=== PATIENT | female | born 1970 | race Caucasian/White ===

== ENCOUNTER 2022-12-02 08:41 | Outpatient (CLI) | payer BC, SELFPAY ==
--- NOTE | 2022-12-02 08:45 | CRLHL7_ITS ---
For Patients: As a result of the Century Cures Act, medical imaging exams and procedure reports are released immediately into your electronic medical record. You may view this report before your referring provider. If you have questions, please contact your health care provider. BILATERAL SCREENING MAMMOGRAM WITH COMPUTER-AIDED DETECTION AND TOMOSYNTHESIS TECHNIQUE: CC and MLO views were obtained. These mammographic images have been obtained using full-field digital technique. These mammographic images were interpreted with the benefit of computer-aided detection. Breast Tomosynthesis was used in this interpretation. COMPARISON FILM: 02/21/21, 10/20/19, 05/05/18. FINDINGS: There are scattered areas of fibroglandular density IMPRESSION: There is no radiographic evidence for malignancy. ASSESSMENT: BI-RADS Category 1: Negative RECOMMENDATION: Routine screening mammogram in 1 year. A lay language report of this examination will be provided to the patient. Landon Wilson M.D. Diagnostic/Nuclear Medicine Radiologist [email or web address] DINO/Dictated by: Landon Wilson MD @ 12/03/2022 10:29:00 AM (Electronically Signed)
== END 2022-12-02 08:42 | disposition home or self-care (01) ==
LOC: MAMMO 08:42
PROVIDERS: PCP Physician Assistant Medical; Visit Provider Physician Assistant Medical
DX: Z12.31 Encounter for screening mammogram for malignant neoplasm of breast (principal)
CPT/HCPCS: 77063; 77067

== ENCOUNTER 2024-02-15 09:47 | Outpatient (CLI) | payer BC, SELFPAY ==
--- NOTE | 2024-02-15 09:45 | CRLHL7_ITS ---
For Patients: As a result of the Century Cures Act, medical imaging exams and procedure reports are released immediately into your electronic medical record. You may view this report before your referring provider. If you have questions, please contact your health care provider. BILATERAL SCREENING MAMMOGRAM WITH COMPUTER-AIDED DETECTION AND TOMOSYNTHESIS TECHNIQUE: CC and MLO views were obtained. These mammographic images have been obtained using full-field digital technique. These mammographic images were interpreted with the benefit of computer-aided detection. Breast Tomosynthesis was used in this interpretation. COMPARISON FILM: 12/02/22, 02/21/21, 10/20/19. FINDINGS: There are scattered areas of fibroglandular density. IMPRESSION: There is no radiographic evidence for malignancy. ASSESSMENT: BI-RADS Category 1: Negative RECOMMENDATION: Routine screening mammogram in 1 year. A lay language report of this examination will be provided to the patient. Landon Wilson M.D. Diagnostic/Nuclear Medicine Radiologist [email or web address] ENRIQUE/hannah SP/Dictated by: Landon Wilson MD @ 02/17/2024 10:48:00 AM (Electronically Signed)
== END 2024-02-15 09:48 | disposition home or self-care (01) ==
LOC: MAMMO 09:49
PROVIDERS: PCP Physician Assistant Medical; Visit Provider Physician Assistant Medical
DX: Z12.31 Encounter for screening mammogram for malignant neoplasm of breast (principal)
CPT/HCPCS: 77063; 77067

== ENCOUNTER 2024-03-25 11:24 | Emergency (ER) | payer BC, SELFPAY ==
[2024-03-25 11:30] VITALS: BP 201/131; PULSE 84; RESP 20; TEMP 36.9; O2SAT 100; BMI 39.1
--- NOTE | 2024-03-25 11:33 | ED_ITS ---
HPI - General Adult General Chief complaint: Flank Pain Stated complaint: Flank pain/blood in urine Time Seen by Provider: 03/25/24 11:27 History of Present Illness HPI narrative: Patient began to have severe left-sided back pain, hematuria, nausea and vomiting yesterday. 53-year-old presenting to the emergency department with complaint of left-sided back pain increasing since yesterday. She is also nauseated been vomiting. She has also seen hematuria. No fever. Does have some degree of chronic low back pain but this is different. Twenty-two years ago when she was with her son apparently was initial diagnosis of kidney stones brought on by excessive Tums ingestion reportedly. No trouble since actually. She is otherwise scheduled for an abdominal hernia repair and apparently surgeon had ordered for a contrasted CT scan of abdomen pelvis to be done shortly. Related Data Home Medications ?Medication ?Instructions ?Recorded ?Confirmed metoprolol succinate 50 mg 50 mg PO DAILY 03/25/24 03/25/24 tablet,extended release 24 hr olmesartan 40 mg tablet 40 mg PO DAILY 03/25/24 03/25/24 Previous Rx's ?Medication ?Instructions ?Recorded tamsulosin 0.4 mg capsule (Flomax) 0.4 mg PO DAILY ureteral spasm #15 03/25/24 caps Allergies Allergy/AdvReac Type Severity Reaction Status Date / Time No Known Drug Allergies Allergy Verified 03/25/24 12:19 Review of Systems Status of ROS: Reports: 6 or more systems reviewed and unremarkable except as noted in History and below [facility] Social History Non-prescribed substance use: denies use Exam Narrative: Exam Narrative: Pleasant. Lying semi recumbent on her left side. Clearly very uncomfortable. Skin is warm and dry. Wincing occasionally in pain. Otherwise breathing easily. Lungs appear to be clear. Heart in regular rate and rhythm. Abdomen notable for a left flank percussive tenderness. Const: Vital Signs, click to edit/add: Vital Signs - 24 hr 03/25/24 11:30 03/25/24 12:44 03/25/24 12:44 Temperature 98.4 F Pulse Rate 65 Pulse Rate [Pulse Oximeter] 84 65 Respiratory Rate 20 16 Blood Pressure 138/85 Blood Pressure [Ri ght Upper Arm] 201/131 H 138/85 Pulse Oximetry 100 98 98 Oxygen Delivery Me thod Room Air Documenting provider has reviewed patient's vital signs: yes Course Vital Signs Vital signs: Initial Vital Signs Temperature 98.4 F 03/25/24 11:30 Temperature Source Temporal Artery Scan 03/25/24 11:30 Pulse Rate 84 03/25/24 11:30 Respiratory Rate 20 03/25/24 11:30 Blood Pressure 201/131 H 03/25/24 11:30 Blood Pressure Mean 154 H 03/25/24 11:30 Pulse Oximetry 100 03/25/24 11:30 Vital Signs Temperature 98.4 F 03/25/24 11:30 Pulse Rate 84 03/25/24 11:30 Respiratory Rate 20 03/25/24 11:30 Blood Pressure 201/131 H 03/25/24 11:30 Pulse Oximetry 100 03/25/24 11:30 Temperature 98.4 F 03/25/24 11:30 Pulse Rate 65 03/25/24 12:44 Respiratory Rate 16 03/25/24 12:44 Blood Pressure 138/85 03/25/24 12:44 Pulse Oximetry 98 03/25/24 12:44 Oxygen Delivery Method Room Air 03/25/24 12:44 Medications Administered Medications: Discontinued Medications Generic Name Dose Route Start Last Admin Trade Name Freq PRN Reason Stop Dose Admin Hydromorphone HCl 0.5 mg 03/25/24 12:26 03/25/24 12:28 Hydromorphone 0.5 Mg/0.5 Ml Inj IVP 03/25/24 12:27 0.5 mg ONCE ONE Administration Sodium Chloride 1,000 mls @ 1,000 mls/hr 03/25/24 11:44 03/25/24 13:47 0.9 % Sodium Chloride 1000 Ml IV 03/25/24 12:43 Infused .Q1H ONE Infusion Ketorolac Tromethamine 30 mg 03/25/24 11:44 03/25/24 12:05 Ketorolac 30 Mg/Ml Inj IVP 03/25/24 11:45 30 mg ONCE ONE Administration Morphine Sulfate 4 mg 03/25/24 11:44 03/25/24 12:05 Morphine 4 Mg/Ml Inj IVP 03/25/24 11:45 4 mg ONCE ONE Administration Ondansetron HCl 4 mg 03/25/24 11:44 12/13/24 12:05 Ondansetron 2 Mg/Ml Inj IVP 03/25/24 11:45 4 mg ONCE ONE Administration Oxycodone/Acetaminophen 1 tab 03/25/24 12:57 03/25/24 13:02 Oxycodone/Apap 5-325 Tablet PO 03/25/24 12:58 1 tab ONCE ONE Administration Tamsulosin HCl 0.4 mg 03/25/24 12:28 03/25/24 12:39 Tamsulosin Hcl 0.4 Mg Capsule PO 03/25/24 12:29 0.4 mg ONCE ONE Administration Medical Decision Making MDM Narrative Medical decision making narrative: Symptoms do appear to be consistent with ureteral stone and colic. Unknown stone burden as been sometime since she had kidney stone. This might also be urinary tract infection otherwise. Vascular disruption? Doubtful radicular back pain. Confirmed a scheduled CT scan. Can go ahead and do that here today. IV, pain meds, antiemetic for symptom relief. Contrasted CT scan abdomen pelvis independently reviewed by me does show small, about 3 mm stone in the left ureteropelvic junction with mild hydronephrosis. Also noted are the abdominal wall hernias Re-dosed pain meds with 1 dose of Dilaudid and did receive 1 tab of Percocet then prior to departure. Overall symptoms improved. Labs are reassuring normal renal function and white count. Urinalysis as expected with red cells and white cells on microscopic but no nitrite or leukocyte esterase. Radiology over-read CT imaging as below TECHNIQUE: CT abdomen and pelvis acquired with 111 mL Isovue 370 contrast. COMPARISON: None available. FINDINGS: Lower chest: No focal consolidation. Liver: No suspicious focal hepatic lesion. Gallbladder and bile ducts: Unremarkable. Pancreas: Unremarkable. Spleen: Unremarkable. Adrenal glands: Unremarkable. Kidneys: Slightly delayed enhancement of the left kidney. 0.2 cm calculus at the left ureteropelvic junction, results in minimal left hydronephrosis. Additional small bilateral parapelvic cysts are noted. Retroperitoneum: No lymphadenopathy. Bowel and mesentery: Bowel is not obstructed. No significant ascites, no pneumoperitoneum. Normal appendix. Small hiatal hernia. Bladder: Decompressed, suboptimally evaluated. Reproductive organs: Post hysterectomy. Pelvic lymph nodes: No lymphadenopathy. Vessels: Few scattered atherosclerotic calcifications. Abdominal wall: Multiple small ventral fat filled abdominal wall hernias. The largest is supraumbilical, with a narrow neck measuring 1.3 cm in cranial caudal dimension and 1.6 cm in transverse dimension, with mild inflammation of the herniated mesentery. Hernias do not contain bowel. Bones: Multilevel degenerative changes of the spine. No suspicious/aggressive focal osseous lesion. IMPRESSION: 1. 0.2 cm calculus at the left ureteropelvic junction, results in minimal left hydronephrosis. 2. Multiple fat filled ventral abdominal wall hernias as measured above. Discussed all findings with Ms. Ramos. Provided with copy of images and radiology over-read See patient discharge plan for further discussion Generally focus on hydration with water. Consider straining your urine over this next week. Be seen for uncontrolled pain, fever, intractable vomiting, pain lasting more than 5 days. Prescribing Percocet and Zofran from [facility]. Sending a prescription of Flomax; would take daily until relatively certain of resolution. Can take up to 1000 mg of acetaminophen per dose. Remember that each tablet of Percocet contains 325 mg of acetaminophen. Can take up to 800 mg of ibuprofen per dose. Would consider dosing ibuprofen maybe 400 mg 3 times a day over the next few days. Lab Data Lab results reviewed: Yes I reviewed the patient's lab results Labs: Lab Results 03/25/24 03/25/24 Range/Units 11:40 13:40 WBC 8.89 (4.50-11.00) K/uL RBC 4.74 (4.00-5.20) m/uL Hgb 14.0 (12.0-16.0) gm/dL Hct 43.2 (33.0-51.0) % MCV 91 (80-100) fL MCH 30 (26-34) pg MCHC 32 (32-36) gm/dL RDW Coeff of Gala 13.1 (11.5-15.5) % Plt Count 288 (140-440) K/uL Neut % (Auto) 55.4 (42.0-72.0) % Lymph % (Auto) 35.1 (20-44) % Graves % (Auto) 7.4 (0.0-11.0) % Eos % (Auto) 1.0 (0.0-7.0) % Baso % (Auto) 0.3 (0.0-3.0) % Neut # (Auto) 4.92 (1.7-7.0) K/uL Lymph # (Auto) 3.12 H (0.90-2.90) K/uL Graves # (Auto) 0.70 (0.00-0.90) K/UL Eos # (Auto) 0.09 (0.00-0.50) K/uL Baso # (Auto) 0.03 (0.00-0.30) K/uL Abs Immat Gran (auto) 0.07 (0.00-0.30) K/uL Imm/Tot Granulo (auto) 0.8 % Sodium 141 (135-149) mmol/L Potassium 4.3 (3.6-5.1) mmol/L Chloride 110 (96-114) mmol/L Carbon Dioxide 22 (20-32) mmol/L Anion Gap 9 (7-15) mEq/L BUN 26 (7-30) mg/dL Creatinine 0.8 (0.5-1.5) mg/dL Estimated Creat Clear 71.03 Estimated GFR 89 ml/min Glucose 123 H (60-115) mg/dL Calcium 9.4 (8.4-10.6) mg/dL C-Reactive Protein 0.6 (0.5-1.0) mg/dL Urine Color Yellow (Yellow) Urine Appearance Cloudy A (Clear) Urine pH 7.0 (5.0-8.5) Ur Specific [place] 1.015 (1.000-1.030) Urine Protein Negative (Negative) Urine Glucose (UA) Negative (Negative) Urine Ketones 1+ A (Negative) Urine Blood 3+ A (Negative) Urine Nitrite Negative (Negative) Urine Bilirubin Negative (Negative) Urine Urobilinogen 0.2 (0.2-1.0) Ur Leukocyte Esterase Negative (Negative) Urine RBC >100 A (0-2) Urine WBC 10-25 A (0-5) Ur Squamous Epith Cells None (None-Few) Urine Bacteria None (None) Discharge Plan Discharge Clinical Impression: Left ureteral calculus, Ureteral colic Patient Disposition: Home w/ Parent or Adult Condition: Improved Instructions: Hydronephrosis (ED), Ureteral Stones (ED) Additional Instructions: Generally focus on hydration with water. Consider straining your urine over this next week. Be seen for uncontrolled pain, fever, intractable vomiting, pain lasting more than 5 days. Prescribing Percocet and Zofran from [facility]. Sending a prescription of Flomax; would take daily until relatively certain of resolution. Can take up to 1000 mg of acetaminophen per dose. Remember that each tablet of Percocet contains 325 mg of acetaminophen. Can take up to 800 mg of ibuprofen per dose. Would consider dosing ibuprofen maybe 400 mg 3 times a day over the next few days. Prescriptions: New tamsulosin [Flomax] 0.4 mg capsule 0.4 mg PO DAILY Qty: 15 0RF No Action metoprolol succinate 50 mg tablet extended release 24 hr 50 mg PO DAILY olmesartan 40 mg tablet 40 mg PO DAILY Follow Up/Referrals: Barbara Cuadra PA-C [Primary Care Provider] - Stand Alone Forms: [facility] Info Instructions
--- NOTE | 2024-03-25 11:45 | CRLHL7_ITS ---
For Patients: As a result of the Century Cures Act, medical imaging exams and procedure reports are released immediately into your electronic medical record. You may view this report before your referring provider. If you have questions, please contact your health care provider. INDICATION: Left-sided back pain, hematuria, nausea and vomiting. TECHNIQUE: CT abdomen and pelvis acquired with 111 mL Isovue 370 contrast. COMPARISON: None available. FINDINGS: Lower chest: No focal consolidation. Liver: No suspicious focal hepatic lesion. Gallbladder and bile ducts: Unremarkable. Pancreas: Unremarkable. Spleen: Unremarkable. Adrenal glands: Unremarkable. Kidneys: Slightly delayed enhancement of the left kidney. 0.2 cm calculus at the left ureteropelvic junction, results in minimal left hydronephrosis. Additional small bilateral parapelvic cysts are noted. Retroperitoneum: No lymphadenopathy. Bowel and mesentery: Bowel is not obstructed. No significant ascites, no pneumoperitoneum. Normal appendix. Small hiatal hernia. Bladder: Decompressed, suboptimally evaluated. Reproductive organs: Post hysterectomy. Pelvic lymph nodes: No lymphadenopathy. Vessels: Few scattered atherosclerotic calcifications. Abdominal wall: Multiple small ventral fat filled abdominal wall hernias. The largest is supraumbilical, with a narrow neck measuring 1.3 cm in cranial caudal dimension and 1.6 cm in transverse dimension, with mild inflammation of the herniated mesentery. Hernias do not contain bowel. Bones: Multilevel degenerative changes of the spine. No suspicious/aggressive focal osseous lesion. IMPRESSION: 1. 0.2 cm calculus at the left ureteropelvic junction, results in minimal left hydronephrosis. 2. Multiple fat filled ventral abdominal wall hernias as measured above. Please note that all CT scans at this facility use dose modulation, iterative reconstruction, and/or weight-based dosing when appropriate to reduce radiation dose to as low as reasonably achievable. Dictated by Sil Lake MD @ 03/25/2024 1:00:30 PM (Electronically Signed)
[2024-03-25] MEDS: MORPHINE 4 MG/ML INJ IVP (12:05)
[2024-03-25] MEDS: ONDANSETRON 2 MG/ML inj 4 MG IVP (12:05)
[2024-03-25] MEDS: KETOROLAC 30 MG/ML inj IVP (12:05)
[2024-03-25] MEDS: 0.9 % SODIUM CHLORIDE 1000 ml 1,000 ML IV (12:06)
[2024-03-25 12:08] LABS: Chloride* 110 mmol/L (96-114); Potassium* 4.3 mmol/L (3.6-5.1); Sodium* 141 mmol/L (135-149)
[2024-03-25 12:12] LABS: Basophils Absolute Auto 0.03 K/uL (0.00-0.30); Basophils Percent Auto 0.3 % (0.0-3.0); Eosinophils Absolute Auto 0.09 K/uL (0.00-0.50); Hematocrit 43.2 % (33.0-51.0); Immature Granulocytes Abs Auto 0.07 K/uL (0.00-0.30); Immature Granulocytes Pct Auto 0.8 %; Lymphocytes Absolute Auto 3.12 K/uL (0.90-2.90); Lymphocytes Percent Auto 35.1 % (20-44); Mean Corpuscular HGB Conc 32 gm/dL (32-36); Mean Corpuscular Hemoglobin 30 pg (26-34); Mean Corpuscular Volume 91 fL (80-100); Monocytes Percent Auto 7.4 % (0.0-11.0); Neutrophils Absolute Auto 4.92 K/uL (1.7-7.0); Neutrophils Percent Auto 55.4 % (42.0-72.0); Platelet Count* 288 K/uL (140-440); RDW Coefficient of Variation % 13.1 % (11.5-15.5); Red Blood Count 4.74 m/uL (4.00-5.20); White Blood Count* 8.89 K/uL (4.50-11.00)
[2024-03-25 12:17] LABS: Anion Gap 9 mEq/L (7-15); Carbon Dioxide* 22 mmol/L (20-32); Slide Review Reflex No
[2024-03-25 12:18] LABS: Blood Urea Nitrogen* 26 mg/dL (7-30); C Reactive Protein* 0.6 mg/dL (0.5-1.0); Calcium* 9.4 mg/dL (8.4-10.6); Creatinine* 0.8 mg/dL (0.5-1.5); Est. Creatinine Clearance* 71.03; Estimated Glomerular Filt Rate 89 ml/min; Glucose* 123 mg/dL (60-115)
[2024-03-25] MEDS: HYDROmorphone 0.5 mg/0.5 ml inj IVP (12:28)
[2024-03-25] MEDS: TAMSULOSIN HCL 0.4 MG CAPSULE PO (12:39)
[2024-03-25 12:44] VITALS: BP 138/85; PULSE 65; RESP 16; O2SAT 98
[2024-03-25] MEDS: OxyCODONE/APAP 5-325 TABLET 1 TAB PO (13:02)
[2024-03-25 13:15] VITALS: PULSE 58; O2SAT 97
[2024-03-25 13:30] VITALS: PULSE 61; RESP 16; O2SAT 95
[2024-03-25 13:58] LABS: Appearance Urine Cloudy (Clear); Bilirubin Urine Negative (Negative); Blood Urine 3+ (Negative); Color Urine Yellow (Yellow); Glucose Urine Negative (Negative); Ketones Urine 1+ (Negative); Leukocyte Esterase Urine Negative (Negative); Nitrite Urine Negative (Negative); Protein Urine Negative (Negative); Specific Gravity Urine 1.015 (1.000-1.030); Urobilinogen Urine 0.2 (0.2-1.0)
[2024-03-25 14:23] LABS: RBC Urine >100 (0-2)
== END 2024-03-25 15:08 | disposition home or self-care (01) ==
PROVIDERS: Emergency Provider Family Medicine; PCP Physician Assistant Medical
DX: N20.1 Calculus of ureter (principal)
CPT/HCPCS: 36415; 74177; 80048; 81001; 85025; 86140; 87086; 94761; 96374; 96375; 99284; A9270; J1171; J1885; J2270; J2405; J7030; Q9967